=== PATIENT | female | born 1995 | race Caucasian/White ===

== ENCOUNTER 2016-12-29 06:44 | Day surgery (SDC) | payer OTHER ==
[~2016-12-29 06:44] MED LIST: ARZOL Silver Nitrate Applicator TP ONE; ASTRINGYN 8 GM TP ONE; Lactated Ringers 1,000 ML IV ONE
[2016-12-29] MEDS ORDERED: Pepcid 20 MG VIAL IV ONE ×2 (07:12→07:13)
[2016-12-29] MEDS ORDERED: Lactated Ringers 1,000 ML IV ONE (07:13)
[2016-12-29] MEDS ORDERED: Lactated Ringers 1,000 ML IV SCH (07:30)
[2016-12-29 07:32] LABS: Mean Cell Volume 85.9 fl (78-100); Mean Corpuscular Hemoglobin 29.7 pg (26-32); Mean Platelet Volume 10.3 fl (6-9.5); Platelet Count 245 K/mm3 (150-450); Red Blood Count 4.34 M/mm3 (4.1-5.4); Red Cell Distribution Width 13.2 % (11.5-14.0); White Blood Count 9.1 K/mm3 (4.0-10.5)
[2016-12-29] MEDS ORDERED: Versed 2 MG/2 ML Injection IV ONE (08:00)
[2016-12-29] MEDS ORDERED: Decadron 4 MG INJ IV ONE (08:00)
[2016-12-29] MEDS ORDERED: Pitocin 10 UNITS/ML IV ONE (08:00)
[2016-12-29] MEDS ORDERED: TORAdol 30 mg Injection IV ONE (08:00)
[2016-12-29] MEDS ORDERED: DIPRIVAN 200 MG/20 ML IV ONE (08:00)
[2016-12-29] MEDS ORDERED: Zofran 4 MG/2 ML VIAL IV ONE (08:00)
[2016-12-29] MEDS ORDERED: SUBLIMAZE 100 MCG/2 ML IV ONE (08:00)
[2016-12-29] MEDS ORDERED: SUBLIMAZE 100 MCG/2 ML ONE (09:09)
--- NOTE | 2016-12-29 09:17 | OP ---
SURGERY DATE: 12/29/16 SURGERY TIME: 822 PREOPERATIVE DIAGNOSIS: 1. MISSED . POSTOPERATIVE DIAGNOSIS: 1. MISSED . PROCEDURE: 1. Suction dilatation/curettage. SURGEON: Dr. Gonzalez. ANESTHESIA: General. BRIEF HISTORY: The patient is a 21 y/o WF who presents now after having been diagnosed with a missed . She had an US done for not hearing heart tones. The US confirmed there was no heart motion and a pole with an embryo of approximately 10 weeks in size. The patient was described the risks of this procedure including the risk of wound infection, bleeding requiring transfusion, possible Asherman syndrome, and perforation of the uterus. The patient verbalized her understanding and desired to have the procedure performed. DESCRIPTION OF PROCEDURE: The patient was prepped and draped in the dorsal lithotomy position. After general anesthesia was induced, bimanual palpation revealed the uterus to be of 10-12 weeks in size. No adnexal masses were felt. The weighted speculum was then placed. The cervix was exposed and grasped with a single toothed tenaculum. It was then sounded to approximately 4 1/2 inches in depth and progressively dilated to allow entry of a #11 curved curette. Suction curettage was then used to remove the products of conception. This was followed with sharp curettage as well as polyp forceps, no remaining products of conception being returned. The patient was given IV Pitocin to stem the flow of the bleeding. Estimated blood loss was approximately 250 cc. The single toothed tenaculum along with the weighted speculum were removed from the vaginal vault and the patient was awakened and taken back to recovery in good condition.
[2016-12-29] MEDS ORDERED: NORCO 5/325 MG PO PRN (10:20)
[2016-12-29] MEDS ORDERED: NORCO 5/325 MG ONE (10:49)
[2016-12-29 11:34] VITALS: BP 100/54; PULSE 84; O2SAT 100
== END 2016-12-29 11:48 | disposition home or self-care (01) ==
LOC: SDC 06:44
PROVIDERS: ATTEND Family Medicine
PROC: 10D18ZZ Extraction of Products of Conception, Retained, Via Natural or Artificial Opening Endoscopic (ICD-10-PCS; principal; 2016-12-29)
DX: O02.1 Missed abortion (principal)
CPT/HCPCS: 01965; 36415; 84702; 85027; 88305; J1100; J1885; J2250; J2405; J2590; J2704; J3010

== ENCOUNTER 2023-10-18 23:50 | Emergency (ER) | payer BC, OTHER ==
[2023-10-19] MEDS ORDERED: Sodium Chloride 0.9% 1000 ML 1,000 ML IV STA (00:04)
[2023-10-19] MEDS ORDERED: PROTONIX 40 MG IV IV ONE ×2 (00:04→00:21)
[2023-10-19 00:09] VITALS: TEMP 98.1
--- NOTE | 2023-10-19 00:10 | ERPHSYRPT ---
- History of Present Illness Time Seen by Provider: 10/18/23 23:52 Historian: patient Exam Limitations: no limitations Physician History: 28-year-old female presented in the ER with almost 1 week history of off-and-on loose stool with abdominal discomfort. Patient reports she had a loose stool for couple of days which improved but started to have diarrhea again today with 5-6 episodes of loose watery with no hematochezia. Reporting upper abdominal discomfort dull aching burning pain/aching sensation moderate intensity constant which improved prior to arrival and feeling much better now. Patient reports she is feeling bloated now. Denies any nausea or vomiting. No fever or chills reported. Other family members had similar symptoms. Allergies/Adverse Reactions: No Known Drug Allergies Allergy (Verified 10/19/23 00:12) Home Medications: No Reportable Medications [No Reported Medications] 10/19/23 [History] Hx Tetanus, Diphtheria Vaccination/Date Given: Yes Hx Influenza Vaccination/Date Given: Yes Hx Pneumococcal Vaccination/Date Given: No - Review of Systems Constitutional: Fatigue, Weakness Eyes: No Symptoms Ears, Nose, & Throat: No Symptoms Respiratory: No Symptoms Cardiac: No Symptoms Abdominal/Gastrointestinal: Abdominal Pain, Diarrhea Genitourinary Symptoms: No Symptoms Musculoskeletal: No Symptoms Neurological: No Symptoms Endocrine: No Symptoms Hematologic/Lymphatic: No Symptoms - Past Medical History Pertinent Past Medical History: Yes Neurological History: No Pertinent History ENT History: No Pertinent History Cardiac History: No Pertinent History Respiratory History: No Pertinent History Endocrine Medical History: No Pertinent History Musculoskeletal History: No Pertinent History GI Medical History: No Pertinent History History: No Pertinent History Psycho-Social History: No Pertinent History Female Reproductive Disorders: Other Other Medical History: miscarriage this week - Past Surgical History Past Surgical History: No Neuro Surgical History: No Pertinent History Cardiac: No Pertinent History Respiratory: No Pertinent History Gastrointestinal: No Pertinent History Genitourinary: No Pertinent History Musculoskeletal: No Pertinent History Female Surgical History: No Pertinent History - Social History Smoking Status: Never smoker Exposure to second hand smoke: No Drug Use: none Patient Lives Alone: No - Nursing Vital Signs Nursing Vital Signs: Initial Vital Signs Temperature 98.1 F 10/18/23 23:57 Pulse Rate 90 10/18/23 23:57 Respiratory Rate 16 10/18/23 23:57 Blood Pressure 106/69 10/18/23 23:57 O2 Sat by Pulse Oximetry 99 10/18/23 23:57 Pain Scale Pain Intensity 0 - Physical Exam General Appearance: no apparent distress, alert Eye Exam: PERRL/EOMI Ears, Nose, Throat Exam: normal ENT inspection Neck Exam: normal inspection, supple, full range of motion Respiratory Exam: normal breath sounds, lungs clear Cardiovascular Exam: regular rate/rhythm, normal heart sounds Gastrointestinal/Abdomen Exam: soft, normal bowel sounds, tenderness (Mild generalized more in the upper), No distention, No guarding Back Exam: normal inspection Extremity Exam: normal inspection, normal range of motion Neurologic Exam: alert, oriented x 3, cooperative Skin Exam: normal color SpO2 Interpretation: normal SpO2: 96 O2 Delivery: Room Air Ordered Tests: Active Orders 24 hr Category Date Time Status IV Insertion STAT Care 10/19/23 00:04 Active ABDOMEN AND PELVIS W/0 CONTRAS [CT] Stat Exams 10/19/23 01:07 Completed CBC W DIFF Stat Lab 10/19/23 00:20 Completed CMP Stat Lab 10/19/23 00:20 Completed CULTURE,URINE Stat Lab 10/19/23 00:56 Received HCG QUALITATIVE, SERUM Stat Lab 10/19/23 00:20 Completed LIPASE Stat Lab 10/19/23 00:20 Completed UA W/RFX UR CULTURE Stat Lab 10/19/23 00:56 Completed Medication Summary Discontinued Medications Generic Name Dose Route Start Last Admin Trade Name Cedric PRN Reason Stop Dose Admin Sodium Chloride 1,000 mls @ 999 mls/hr 10/19/23 00:04 10/19/23 01:55 Sodium Chloride 0.9% 1000 Ml IV 10/19/23 01:04 Infused .Q1H1M STA Infusion Sodium Chloride Confirm 10/19/23 00:21 Sodium Chloride 0.9% 1000 Ml Administered 10/19/23 00:22 Dose 1,000 mls @ ud .ROUTE .STK-MED ONE Pantoprazole Sodium 40 mg 10/19/23 00:04 10/19/23 00:28 Pantoprazole 40 Mg Vial IV 10/19/23 00:05 40 mg STAT ONE Administration Pantoprazole Sodium Confirm 10/19/23 00:21 Pantoprazole 40 Mg Vial Administered 10/19/23 00:22 Dose 40 mg IV .STK-MED ONE Lab/Rad Data: Laboratory Result Diagrams 10/19/23 00:20 10/19/23 00:20 Laboratory Results 10/19/23 10/19/23 10/19/23 Range/Units 01:58 00:56 00:20 WBC (4.0-10.5) x10^3/uL RBC (4.1-5.4) x10^6/uL Hgb (12.0-16.0) g/dL Hct (35-47) % MCV (78-100) fL MCH (26-32) pg MCHC (32-36) g/dL RDW (11.5-14.0) % Plt Count (150-450) x10^3/uL MPV (7.5-11.0) fL Gran % (36.0-66.0) % Immature Gran % (Auto) (0.00-0.4) % Nucleat RBC Rel Count (0.00-0.1) % Eos # (Auto) (0-0.5) x10^3/uL Immature Gran # (Auto) (0.00-0.03) x10^3u/L Absolute Lymphs (auto) (1.0-4.6) x10^3/uL Absolute Monos (auto) (0.0-1.3) x10^3/uL Absolute Nucleated RBC (0.00-0.01) x10^3u/L Lymphocytes % (24.0-44.0) % Monocytes % (0.0-12.0) % Eosinophils % (0.00-5.0) % Basophils % (0.0-0.4) % Absolute Granulocytes (1.4-6.9) x10^3/uL Basophils # (0-0.4) x10^3/uL Sodium (137-145) mmol/L Potassium (3.5-5.1) mmol/L Chloride (98-107) mmol/L Carbon Dioxide (22-30) mmol/L Anion Gap (5-15) MEQ/L BUN (7-17) mg/dL Creatinine (0.52-1.04) mg/dL Estimated GFR ML/MIN Glucose (74-106) mg/dL Calcium (8.4-10.2) mg/dL Total Bilirubin (0.2-1.3) mg/dL AST (14-36) U/L ALT (0-35) U/L Alkaline Phosphatase (38-126) U/L Serum Total Protein (6.3-8.2) g/dL Albumin (3.5-5.0) g/dL Lipase (23-300) U/L Serum HCG, Qual NEGATIVE (NEGATIVE) Urine Color Dark Yellow A (Yellow) Urine Appearance Cloudy A (Clear) Urine pH 6.0 (4.6-8.0) Ur Specific Solon 1.025 (1.005-1.030) Urine Protein 30 (Negative) Urine Glucose (UA) Negative (Negative) mg/dL Urine Ketones 15 A (Negative) Urine Blood Trace (Negative) Urine Nitrite Negative (Negative) Urine Bilirubin Negative (Negative) Urine Urobilinogen 0.2 (0.2) mg/dL Ur Leukocyte Esterase Negative (Negative) U Hyaline Cast (Auto) 11-20 (0-2) /LPF Urine Microscopic RBC 6-10 A (0-5) /HPF Urine Microscopic WBC 3-5 (0-5) /HPF Ur Epithelial Cells Few (None Seen) /HPF Urine Bacteria None Seen (None Seen) /HPF Urine Culture Reflexed YES (NO) C. difficile Screen NEGATIVE (NEGATIVE) C.difficile 027-[id number] PRESUMPTIVE NEGATIVE (NEGATIVE) 10/19/23 10/19/23 Range/Units 00:20 00:20 WBC 8.2 (4.0-10.5) x10^3/uL RBC 4.91 (4.1-5.4) x10^6/uL Hgb 14.0 (12.0-16.0) g/dL Hct 42.3 (35-47) % MCV 86.2 (78-100) fL MCH 28.5 (26-32) pg MCHC 33.1 (32-36) g/dL RDW 11.9 (11.5-14.0) % Plt Count 346 (150-450) x10^3/uL MPV 9.7 (7.5-11.0) fL Gran % 52.8 (36.0-66.0) % Immature Gran % (Auto) 0.2 (0.00-0.4) % Nucleat RBC Rel Count 0.0 (0.00-0.1) % Eos # (Auto) 0.17 (0-0.5) x10^3/uL Immature Gran # (Auto) 0.02 (0.00-0.03) x10^3u/L Absolute Lymphs (auto) 2.97 (1.0-4.6) x10^3/uL Absolute Monos (auto) 0.71 (0.0-1.3) x10^3/uL Absolute Nucleated RBC 0.00 (0.00-0.01) x10^3u/L Lymphocytes % 36.1 (24.0-44.0) % Monocytes % 8.6 (0.0-12.0) % Eosinophils % 2.1 (0.00-5.0) % Basophils % 0.2 (0.0-0.4) % Absolute Granulocytes 4.34 (1.4-6.9) x10^3/uL Basophils # 0.02 (0-0.4) x10^3/uL Sodium 139 (137-145) mmol/L Potassium 3.4 L (3.5-5.1) mmol/L Chloride 102 (98-107) mmol/L Carbon Dioxide 25 (22-30) mmol/L Anion Gap 15.3 H (5-15) MEQ/L BUN 4 L (7-17) mg/dL Creatinine 0.58 (0.52-1.04) mg/dL Estimated GFR 127.1 ML/MIN Glucose 120 H (74-106) mg/dL Calcium 9.3 (8.4-10.2) mg/dL Total Bilirubin 0.30 (0.2-1.3) mg/dL AST 66 H (14-36) U/L ALT 63 H (0-35) U/L Alkaline Phosphatase 67 (38-126) U/L Serum Total Protein 8.4 H (6.3-8.2) g/dL Albumin 4.7 (3.5-5.0) g/dL Lipase 98 (23-300) U/L Serum HCG, Qual (NEGATIVE) Urine Color (Yellow) Urine Appearance (Clear) Urine pH (4.6-8.0) Ur Specific Solon (1.005-1.030) Urine Protein (Negative) Urine Glucose (UA) (Negative) mg/dL Urine Ketones (Negative) Urine Blood (Negative) Urine Nitrite (Negative) Urine Bilirubin (Negative) Urine Urobilinogen (0.2) mg/dL Ur Leukocyte Esterase (Negative) U Hyaline Cast (Auto) (0-2) /LPF Urine Microscopic RBC (0-5) /HPF Urine Microscopic WBC (0-5) /HPF Ur Epithelial Cells (None Seen) /HPF Urine Bacteria (None Seen) /HPF Urine Culture Reflexed (NO) C. difficile Screen (NEGATIVE) C.difficile 027-NAP1-B1 (NEGATIVE) - Progress Progress: improved Progress Note: 10/19/23 00:10 28-year-old female presented in the ER with almost 1 week history of off-and-on loose stool with abdominal discomfort. Patient reports she had a loose stool for couple of days which improved but started to have diarrhea again today with 5-6 episodes of loose watery with no hematochezia. Reporting upper abdominal discomfort dull aching burning pain/aching sensation moderate intensity constant which improved prior to arrival and feeling much better now. Patient reports she is feeling bloated now. Denies any nausea or vomiting. No fever or chills reported. Other family members had similar symptoms. 10/19/23 03:03 She is given fluids, offered pain medication which she declined. On reevaluati on she is feeling much better with no peritoneal signs. Acute abdomen workup showed normal white count, fairly unremarkable chemistries except for some mild elevation of transaminases. C. difficile is negative. I have obtained CT abdomen pelvis without contrast which showed hepatomegaly but no acute abdominal pelvic findings. No UTI. I believe patient has low etiology symptoms, recommended supportive care with increased hydration and Tylenol to take as needed. I do not think she needs any other workup, discussed signs symptoms of worsening needing return to ER with understanding. Stable for discharge. 10/19/23 03:04 Medical Desision Making - Diagnostic Testing Diagnostic test were ordered, analyzed, and reviewed by me: Yes Radiological Interpretation: Reviewed by me - Departure Departure Disposition: Home Clinical Impression: Gastroenteritis Condition: Stable Critical Care Time: No Referrals: SERG PINTO NP [Primary Care Provider] - Follow up with PCP 2 days Instructions: Severe Abdominal Pain, Adult (DC), Viral Gastroenteritis, Adult (DC) Additional Instructions: Drink plenty of fluids to keep yourself well-hydrated. Take Tylenol as needed. Follow-up with primary care for reevaluation. Return to ER for worsening diarrhea, intractable abdominal pain, fever chills etc.
[2023-10-19] MEDS ORDERED: Sodium Chloride 0.9% 1000 ML 1,000 ML ONE (00:21)
[2023-10-19 00:31] LABS: Absolute Neutrophil Ct (ANC) 4.34 x10^3/uL (1.4-6.9); BASOPHIL % 0.2 % (0.0-0.4); Basophil (Absolute #) 0.02 x10^3/uL (0-0.4); Eosinophil % 2.1 % (0.00-5.0); Eosinophil (Absolute #) 0.17 x10^3/uL (0-0.5); Hematocrit 42.3 % (35-47); IMMATURE GRAN # 0.02 x10^3u/L (0.00-0.03); IMMATURE GRAN % 0.2 % (0.00-0.4); Lymphocyte (Absolute #) 2.97 x10^3/uL (1.0-4.6); Lymphocytes % 36.1 % (24.0-44.0); Mean Cell Volume 86.2 fL (78-100); Mean Corpuscular Hemoglobin 28.5 pg (26-32); Mean Corpuscular Hgb Concent. 33.1 g/dL (32-36); Mean Platelet Volume 9.7 fL (7.5-11.0); Monocyte (Absolute #) 0.71 x10^3/uL (0.0-1.3); Monocytes % 8.6 % (0.0-12.0); Neutrophil % 52.8 % (36.0-66.0); Platelet Count 346 x10^3/uL (150-450); Red Blood Count 4.91 x10^6/uL (4.1-5.4); Red Cell Distribution Width 11.9 % (11.5-14.0); White Blood Count 8.2 x10^3/uL (4.0-10.5)
[2023-10-19 00:45] LABS: HCG SERUM TEST NEGATIVE (NEGATIVE)
[2023-10-19 00:46] LABS: ALBUMIN 4.7 g/dL (3.5-5.0); ANION GAP 15.3 MEQ/L (5-15); BILIRUBIN,TOTAL 0.3 mg/dL (0.2-1.3); Calcium 9.3 mg/dL (8.4-10.2); Creatinine 1 0.58 mg/dL (0.52-1.04); EST GLOMERULAR FILTRATION RATE 127.1 ML/MIN; Potassium 3.4 mmol/L (3.5-5.1); Total Protein 8.4 g/dL (6.3-8.2)
[2023-10-19 01:54] LABS: ADD URINE CULTURE? YES (NO); Appearance Cloudy (Clear); Bacteria None Seen /HPF (None Seen); Bilirubin Negative (Negative); Blood Trace (Negative); Epithelial Cells Few /HPF (None Seen); Glucose, Urine Negative (Negative); Ketones 15 (Negative); Leukocyte Esterase Negative (Negative); Nitrite Negative (Negative); Protein,Urine Dip 30 (Negative); Specific Gravity 1.025 (1.005-1.030); Urobilinogen 0.2 mg/dL (0.2)
--- NOTE | 2023-10-19 01:58 | XRAY ---
CLINICAL HISTORY:abd pain, diarrhea COMPARISON:None. TECHNIQUE:CT scan of the abdomen and pelvis was performed without IV contrast. Coronal and sagittal reconstructive images were also obtained. FINDINGS: Mildly enlarged liver (19 cm in MCL) showing homogenous parenchymal attenuation. No dilated intra or extra-hepatic biliary tracts. Distended gall bladder showing no radio dense calculi. Clear surrounding fat planes with no sizeable collections. The spleen, pancreas, and adrenal glands are unremarkable. Both kidneys are of average size showing smooth outline and preserved parenchymal thickness. No renal calculi. No hydronephrosis. Under distension of the urinary bladder showing mild uniform mural thickening. No calculi, obvious masses or diverticular outpouchings. Average sized anteverted uterus. Two small right ovarian hypodense cortical cysts, the largest measures about 3 cm in diameter. Clear appendectomy bed with related metallic clips. The ascending colon, the transverse colon, the descending colon and visualized small bowel loops are unremarkable. The stomach is non-distended with no abnormality No free intraperitoneal air. Minimal pelvic fluid rim seen within the Rubén pouch. Tiny calcific focus is seen abutting the posterior uterine wall. Small fat containing umbilical hernia. No sizeable pathologically enlarged lymph nodes. Scanned osseous structures show no osseous destruction. Scanned lung bases show no abnormality. IMPRESSION: 1. Mild hepatomegaly. 2. Right ovarian small functional cysts. 3. Minimal pelvic fluid rim seen within the Rubén pouch, possibly physiological. 4. Small fat containing umbilical hernia. 5. No free intra-peritnoeal air. Electronically Signed by: Babita Miranda MD. (10/19/2023 01:54:53 EST)
[2023-10-19 02:46] LABS: 027 TOX PROD PRESUMPTIVE NEGATIVE (NEGATIVE); TOXIGENIC C. DIFF ORG NEGATIVE (NEGATIVE)
[2023-10-19 03:04] VITALS: RESP 14
[2023-10-19 03:35] VITALS: BP 106/54; PULSE 78; O2SAT 97
== END 2023-10-19 03:35 | disposition home or self-care (01) ==
LOC: ED 23:50
DX: K52.9 Noninfective gastroenteritis and colitis, unspecified (principal); R10.10 Upper abdominal pain, unspecified
CPT/HCPCS: 36000; 36415; 74176; 80053; 81001; 83690; 84703; 85025; 87086; 87493; 96360; 96374; 99284